=== PATIENT | female | born 1975 | race African-American/Black ===

== ENCOUNTER 2017-08-19 14:28 | Observation (INO) | payer OTHER, SELFPAY ==
[~2017-08-19 14:28] MED LIST: Iopamidol 370 76% 100 ML VIAL ONE
[2017-08-19 15:45] LABS: PTT 30.9 SEC (22.9-36.1); Prothrombin Time 13.3 SEC (12.0-14.7)
[2017-08-19 15:54] LABS: ALT (SGPT) 9 U/L (8-55); AST (SGOT) 15 U/L (5-34); Alkaline Phosphatase 105 U/L (40-150); Anion Gap 18 mmol/L (10-20); BUN (Urea Nitrogen) 10 mg/dL (7.0-18.7); Bilirubin, Total 0.4 mg/dL (0.2-1.2); Calc. Creatinine Clearance 0 mL/min (70-130); Calcium 9.1 mg/dL (7.8-10.44); Carbon Dioxide 25 mmol/L (22-29); Chloride 100 mmol/L (98-107); Estimated GFR-MDRD Greater than 90; Globulin 4.1 g/dL (2.4-3.5); Lipase 23 U/L (8-78); Protein, Total 7.7 g/dL (6.0-8.3); Troponin I Less than 0.010 ng/mL (< 0.028)
[2017-08-19 16:01] LABS: #Basophils 0.1 thou/uL (0.0-0.2); #Eosinphils 0.1 thou/uL (0.0-0.7); #Lymphocytes 2.6 thou/uL (1.20-3.40); #Monocytes 0.5 thou/uL (0.11-0.59); #Neutrophils 6.3 thou/uL (1.40-6.50); %Basophils 0.8 % (0.0-1.0); %Eosinophils 1.1 % (0.0-10.0); %Lymphocytes 26.9 % (21.0-51.0); %Monocytes 5.3 % (0.0-10.0); Hematocrit 34.7 % (36.0-47.0); Hypochromia SLIGHT = 6-15 cells (100X) (0-5/hpf); Mean Platelet Volume 9.1 fL (7.4-10.4); Microcytosis SLIGHT = 6-15 cells (100X) (0-5/hpf); Ovalocytes SLIGHT = 2-5 cells (100X) (0-1/hpf); Red Blood Cell (RBC) Count 5.03 mill/uL (4.20-5.40); Stomatocytes SLIGHT = 2-5 cells (100X) (0-1/hpf); White Blood Cell (WBC) Count 9.5 thou/uL (4.8-10.8)
--- NOTE | 2017-08-19 16:14 | CT ---
CT BRAIN 08/19/17 HISTORY: Left facial weakness. Noncontrast enhanced CT images of the brain obtained. The brain is unremarkable. No evidence of intracranial masses, hemorrhage, strokes or contusions se en. Ventricles are of normal size. IMPRESSION: Unremarkable CT brain. POS: [facility]
--- NOTE | 2017-08-19 16:37 | RAD ---
TWO VIEWS CHEST: 08/19/17 HISTORY: Reported difficulty breathing, shortness of breath. Two views chest demonstrates the lungs to be well aerated. No evidence of active intrathoracic disea se seen. No evidence of effusions, pneumonia or pneumothorax seen. IMPRESSION: Normal two views chest. POS: [facility]
--- NOTE | 2017-08-19 17:30 | CT ---
CTA OF THE THORAX UTILIZING IV CONTRAST PE PROTOCOL AND 3D REFORMAT IMAGING 08/19/17 INDICATION: Shortness of breath; history of blood clot with difficulty breathing. FINDINGS: No central or segmental pulmonary embolus is evident. No enlarged lymph nodes are evident. The lungs are clear. No pleural effusion or pneumothorax is evident. The visualized upper abdomen demonstrate s fatty infiltration of the liver. There is mild scattered degenerative and osteoarthritic change. IMPRESSION: No central or segmental pulmonary embolus. POS: [facility]
[2017-08-19 18:58] LABS: Troponin I 0.012 ng/mL (< 0.028)
[2017-08-19] MEDS ORDERED: Aspirin 325 MG TAB PO SCH (20:00)
[2017-08-19] MEDS ORDERED: Acetaminophen 325 MG TAB PO PRN (20:44)
--- NOTE | 2017-08-19 20:49 | PDOC.EVN ---
Event Note - Event Note Event Note: [id number] h&p dictated 1. Chest pain 2. H/O MS + Rt eye drooping 3. H/O HTN 4. H/O Anemia plan: see orders
[2017-08-19 21:47] LABS: Troponin I Less than 0.010 ng/mL (< 0.028)
[2017-08-19] MEDS: Enoxaparin Sodium 30 MG/0.3 ML SYRINGE SC SCH (22:25)
[2017-08-19] MEDS: Nitroglycerin 2% Ointment 1 INCH/1 GM Packet TOP SCH (22:26)
[2017-08-20 00:22] VITALS: BMI 59.8
[2017-08-20 03:51] LABS: Troponin I Less than 0.010 ng/mL (< 0.028)
[2017-08-20] MEDS: Nitroglycerin 2% Ointment 1 INCH/1 GM Packet TOP SCH ×3 (05:43→20:35)
--- NOTE | 2017-08-20 07:14 | HP ---
DATE OF ADMISSION: 08/19/2017 CHIEF COMPLAINT: Chest heaviness, left eye drooping. HISTORY OF PRESENT ILLNESS: Patient is a 42-year-old female with the past medical history of hypertension, obesity, anemia, now came to the hospital because of chest tightness. The patient says she was sleeping and when she woke up, she started having chest tightness. Chest tightness is substernal pressure kind of pain, moderate in intensity. Denies any radiation, whole episode lasted for few hours. The patient's symptoms slightly improved now. Denies any dyspnea. Denies any palpations. Denies nausea. Denies any vomiting. Complains of some dizziness also. At the time of chest heaviness, the patient tells she started having some bilateral upper extremity numbness and tingling and there was some left eye drooping also when the chest pain started. Currently, left eye drooping improved and the tingling improved also. PAST MEDICAL HISTORY: History of hypertension, obesity, anemia. PAST SURGICAL HISTORY: None. SOCIAL HISTORY: Denies smoking, denies alcohol, denies any drugs. FAMILY HISTORY: Positive for heart problems. MEDICATIONS: Reviewed. REVIEW OF SYSTEMS: Constitutional: Denies fever, denies any chills. Eyes: Positive for left eye drooping. Neck: Denies any neck pain. Cardiovascular System: Positive for chest tightness. Respiratory System: Positive for dyspnea. Psychiatric: Denies anxiety. Integumentary: Denies any rash. Musculoskeletal: Denies any joint deformities. Cranial Nerve System: Denies syncope, denies lightheadedness. Positive for bilateral upper extremity numbness and tingling. All other review of systems are reviewed and are negative. PHYSICAL EXAMINATION: CONSTITUTIONAL/VITAL SIGNS: At the time of H and P performed, blood pressure is 120/70, afebrile, respiratory rate of 18, pulse oximetry 97% on room air. GENERAL: The patient appears comfortable. HEENT: Pupils are equal, round, and reactive. Anterior nares, patent. Nose, normal. Ears, normal. Teeth, intact. Tongue is moist. NECK: Supple, no JVD. CARDIOVASCULAR SYSTEM: S1 and S2 present. Regular rate and rhythm, no murmurs , no rubs, no gallops. RESPIRATORY SYSTEM: No wheezing, no rhonchi. Breath sounds bilaterally. no accessory muscle usage seen GASTROINTESTINAL: Abdomen is soft, nontender, no guarding, no organomegaly, no masses felt. MUSCULOSKELETAL: No edema. moves all joints INTEGUMENTARY: No rashes seen. PSYCHIATRIC: Mood is appropriate at this time. GENITOURINARY: No suprapubic tenderness. No angle tenderness. LABORATORY DATA: At the time of H and P performed, sodium 139, potassium 3.7, chloride of 100, CO2 of 25, BUN 18, creatinine 0.75, glucose 109, CK-MB 0.6, troponin less than 0.010, serum total protein 7.7, albumin 2.6, globulin 4.1. PT 13.3, INR 1. D-dimer 0.46. CT head and chest, no central or segmental pulmonary embolus. EKG, no acute ST changes. ASSESSMENT AND PLAN: The patient is 42-year-old female: 1. Chest pain, need to rule out cardiac etiology. Plan to check cardiac enzymes, plan to consult Cardiology to evaluate the patient. Plan to monitor the patient closely. Plan to check 2D echo. 2. History of multiple sclerosis now with left eye drooping. Will consult Neurology to evaluate the patient for neuro input. 3. History of hypertension. Continue on home blood pressure medications. 4. History of anemia. Monitor hemoglobin closely. The case was discussed in detail with the patient. Patient is FULL CODE. MTDD
[2017-08-20] MEDS: Enoxaparin Sodium 30 MG/0.3 ML SYRINGE SC SCH ×2 (08:33→20:34)
--- NOTE | 2017-08-20 11:21 | PDOC.PN ---
- Subjective Encounter Start Date: 08/20/17 Encounter Start Time: 11:18 Patient seen and examined, all questions answered, no new complaints or issues. - Objective Vital Signs & Weight: Vital Signs (12 hours) Temp Pulse Resp BP Pulse Ox 08/20/17 08:34 98 F 86 18 08/20/17 08:29 98 F 86 18 140/81 95 08/20/17 04:00 98.1 F 89 20 163/86 H 97 Weight Weight 327 lb 8 oz I&O: 08/19/17 08/20/17 08/21/17 06:59 06:59 06:59 Intake Total 280 Balance 280 Result Diagrams: 08/19/17 15:25 08/19/17 15:25 Phys Exam - Physical Examination Constitutional: NAD laying in bed, obese HEENT: PERRLA, moist MMs Neck: no nodes, no JVD Respiratory: no wheezing, no rales Cardiovascular: RRR, no significant murmur Gastrointestinal: soft, non-tender, no distention Musculoskeletal: pulses present, edema present (trace) Neurological: non-focal, normal sensation Psychiatric: normal affect, A&O x 3 Skin: no rash, normal turgor Dx/Plan (1) Hx of multiple sclerosis Code(s): Z86.69 - PERSONAL HISTORY OF DIS OF THE NERVOUS SYS AND SENSE ORGANS Status: Acute (2) HTN (hypertension) Code(s): I10 - ESSENTIAL (PRIMARY) HYPERTENSION Status: Acute (3) Chest pain Code(s): R07.9 - CHEST PAIN, UNSPECIFIED Status: Acute (4) Obese Code(s): E66.9 - OBESITY, UNSPECIFIED Status: Acute - Plan * Symptoms of left eye droop have resolved * cont with telemetry for now * neuro and cardio consultations pending * further management as per consultants * case and plan d/w patient at length, she understands and agrees with this plan
--- NOTE | 2017-08-20 13:47 | CON ---
DATE OF SERVICE: 08/20/2017 CARDIOLOGY CONSULTATION REASON FOR CONSULTATION: Chest pain. HISTORY OF PRESENT ILLNESS: Ms. Hernández is a very nice 42-year-old -[place] female, who com es to the hospital for chest tightness. She says she was at home when it woke her up from sleep. S he describes that as a heaviness in the mid sternal area. It lasted briefly intense for about a few minutes, but then it is just kind of lingered for the next hour, so she came to the ER and was give n a sublingual nitro and some morphine and aspirin. She says the pain has not come back ever since. She was ruled out with negative enzymes and cardiology has been consulted for further evaluation a nd care. She also had left eye drooping per report. It is completely back to normal now. PAST MEDICAL HISTORY: 1. Hypertension. 2. Obesity. 3. Anemia. PAST SURGICAL HISTORY: None. OUTPATIENT MEDICATIONS: Include: 1. Amlodipine 10 mg a day. 2. Hydrochlorothiazide 25 mg a day. ALLERGIES: PENICILLIN. SOCIAL HISTORY: No alcohol, tobacco or drugs. FAMILY HISTORY: Positive for early coronary artery disease. REVIEW OF SYSTEMS: Twelve-point review of systems was done and is all negative unless stated in the history of present illness. PHYSICAL EXAMINATION: VITAL SIGNS: Temperature 98.0, pulse 86, respiratory rate 18, satting 95% on room air, blood pressu re 140/81. GENERAL: Awake, alert and oriented x3, in no distress. HEENT: Normocephalic, atraumatic. NECK: Supple. LUNGS: Clear but distant. CARDIOVASCULAR: Distant heart sounds, no audible murmurs. ABDOMEN: Prominent, soft, positive bowel sounds. EXTREMITIES: 1+ edema. SKIN: Warm and dry. LABORATORY WORK: Reviewed. White count of 9, hemoglobin of 10, hematocrit of 34, platelet count of 362. Coags were reviewed. D-dimer was a little bit high. Chemistries showed troponins are negati ve x4. BNP was undetectable. Triglycerides of 89, total cholesterol 237, LDL of 169 and HDL of 50. Her CMP was unremarkable except for glucose of 129, BUN and creatinine were normal. GFR 90. EKG was reviewed, normal sinus rhythm, no ischemic changes. CT of the brain was unremarkable. Chest x-ray was normal. CT of the chest with contrast showed no evidence of pulmonary embolism. No coronary calcifications w ere seen. ASSESSMENT AND PLAN: 1. Chest pain: We will further risk stratify with stress test. We will plan on doing nuclear Libby scan to evaluate for ischemia. She has ruled out for an acute coronary syndrome. NPO in the morning. Echocardiogram pending today. 2. Hypertension: We will continue her current medications. We will decide on further control depe nding on testing later on today. Thank you for letting us participate in the care of your patient. We will follow.
--- NOTE | 2017-08-20 20:39 | CON ---
DATE OF CONSULTATION: 08/20/2017 NEUROLOGIC CONSULTATION CONSULTING PHYSICIAN: Hospitalist Service. IMPRESSION: Transient left facial heaviness in the midst of both chest pain and shortness of breath . The constellation of symptoms is a bit more suspicious for anxiety and neurologic event. PLAN: 1. Continue aspirin. 2. Continue blood pressure control. 3. Cardiology evaluation is pending. HISTORY OF PRESENT ILLNESS: Ms. Hernández is a 42-year-old black female with a past history of hypert ension and possible multiple sclerosis. She was last seen in the office in 2011. She reports that prior to admission she awoke from a nap and felt a slight heaviness on the left side of the face. S he did not have any trouble speaking or note any other neurologic dysfunction. She did note a feeli ng of pressure on her chest as well as some shortness of breath. The facial symptoms lasted about a n hour. The chest symptoms persisted a bit longer. She came in to the hospital for evaluation. Colette payan had a chest x-ray and CT of the brain, both of which were unremarkable. A CTA of the chest was ne gative for pulmonary embolus. She has had similar symptoms many years ago, but reports not being kostas thered with him lately, she is currently applying for disability. PAST MEDICAL HISTORY: Otherwise, negative except for obesity. FAMILY HISTORY: Noncontributory. ALLERGIES: PENICILLIN. MEDICATIONS: List was reviewed. REVIEW OF SYSTEMS: Otherwise, negative for a headache, nausea, vomiting, vertigo, slurred speech, d ouble vision or transient vision loss. PHYSICAL EXAMINATION: VITAL SIGNS: Blood pressure 148/86, pulse 87, respirations 20, temperature 98.1. HEENT: Pupils equal and reactive. Conjunctivae clear. Oropharynx clear. NECK: Supple. EXTREMITIES: No cyanosis. NEUROLOGIC: She is alert and appropriate. Her speech is fluent and clear. Cranial nerves II-XII a re intact. Motor exam showed symmetric strength. Sensation is intact to touch. Gait was not teste d. LABORATORY STUDIES: Hemoglobin 10.8. Coags were normal and chemistry panel showed a total choleste rol of 237. SUMMARY: This is an obese middle-aged woman with some very transient subtle sensations on the left side of the face of uncertain significance. We would not advance her antiplatelet therapy based on the story. We would continue her aspirin and determine whether further Cardiology workup is needed.
[2017-08-21] MEDS: Nitroglycerin 2% Ointment 1 INCH/1 GM Packet TOP SCH ×3 (06:30→15:06)
[2017-08-21 08:50] VITALS: BP 145/100; TEMP 98.5
[2017-08-21] MEDS ORDERED: Regadenoson 0.4 MG/5 ML SYRINGE ONE (12:00)
--- NOTE | 2017-08-21 14:29 | NM ---
CARDIAC SPECT: HISTORY: A 42-year-old female with chest pain. TECHNIQUE: A myocardial perfusion scan was performed using the single-isotope 2-day protocol with 33 mCi Techne tium 99m sestamibi injected intravenously for rest and stress images. Pharmacologic stress with Ke iScan was monitored and interpreted by Dr. Salamanca. FINDINGS: No fixed or reversible defects are seen. GATED SPECT LVEF: 75%. WALL MOTION EXAM: Normal. IMPRESSION: No evidence of reversible ischemia. POS: [facility]
--- NOTE | 2017-08-21 14:55 | DIS ---
DATE OF ADMISSION: 08/19/2017 DATE OF DISCHARGE: 08/21/2017 DIAGNOSES: 1. Severe obesity. 2. Obstructive sleep apnea. 3. Noncardiac chest pain. 4. Hypertension. CONSULTATIONS: 1. Cardiology, Dr. Santos Tirado. 2. Neurology, Dr. Tonny Ramírez. PROCEDURES: 1. CT of the thorax angiogram on 08/19/2017, negative for pulmonary embolus. 2. Nuclear stress test on 08/21/2017, negative for reversible ischemia. 3. Echocardiogram on 08/20/2017 with normal EF, normal chamber size and mild valvular abnormalities . HISTORY AND PHYSICAL: Ms. Hernández is a pleasant 42-year-old -Citizen Of [place] female who came with c hest heaviness and left eye drooping. Initial workup was concern for pulmonary embolus, which ER wo rkup was negative. She was admitted to the hospital for further cardiac risk stratification. She d oes have a history of multiple sclerosis and left eye drooping. Neurology was asked to evaluate. HOSPITAL COURSE: The patient was observed overnight. On 08/19/2017 and 08/20/2017, she had no furt her episodes of chest pain. Echocardiogram was ultimately done that was fairly normal. She was see n by Dr. Ramírez on 08/20/2017 and felt there were no acute abnormalities and could follow up as nee ded. She was kept overnight 08/20/2017 to 08/21/2017 for a nuclear stress test today. Today, she had nuclear stress test that showed no signs of reversible ischemia. Further discussion with the patient this morning revealed a history more consistent with obstructive sleep apnea syndro me. Given her obesity and symptoms, recommended follow up with PCP for referral to pulmonary for ou tpatient sleep study. The rest of her labs remained normal. She was stable for discharge. PHYSICAL EXAMINATION: The patient was seen and examined. Discharge plan and disposition were discussed with the patient face to face at the bedside. DISCHARGE MEDICATIONS: 1. Amlodipine 10 mg p.o. daily. 2. HCTZ 25 mg p.o. daily. FOLLOWUP APPOINTMENTS: 1. Primary care physician in a week. 2. Referred Pulmonary for outpatient sleep study. 3. Follow up with Cardiology as needed. 4. Follow up with Neurology as needed. DISCHARGE CONDITION: Stable. DISPOSITION: The patient will be discharged home via private vehicle.
[2017-08-21] MEDS: Enoxaparin Sodium 30 MG/0.3 ML SYRINGE SC SCH (15:06)
== END 2017-08-21 15:30 | disposition home or self-care (01) ==
LOC: SCSER 14:28 → 2SE 18:52
PROVIDERS: ADMIT Family Medicine; ATTEND Family Medicine
DX: R07.89 Other chest pain (principal); I10 Essential (primary) hypertension; G47.33 Obstructive sleep apnea (adult) (pediatric); D64.9 Anemia, unspecified; E66.01 Morbid (severe) obesity due to excess calories; Z68.45 Body mass index [BMI] 70 or greater, adult; Z88.0 Allergy status to penicillin; Z79.899 Other long term (current) drug therapy
CPT/HCPCS: 36415; 70450; 71020; 71275; 78452; 80053; 80061; 82553; 83690; 83880; 84484; 85025; 85379; 85610; 85730; 93005; 93017; 93306; 94760; 96372; A9500; G0378; J1650; J2785